=== PATIENT | female | born 1975 | race Caucasian/White ===

== ENCOUNTER 2016-09-05 22:44 | Emergency (ER) | payer OTHER ==
--- NOTE | ~2016-09-05 | EKG ---
PATIENT: TOMMIE CEBALLOS UNIT #: [id number] Ventricular Rate: 74 BPM Atrial Rate: 74 BPM P-R Interval: 158 ms QRS Duration: 80 ms Q-T Interval: 384 ms QTC Calculation(Bezet): 426 ms P [place]: 76 degrees Calculated R [place]: 79 degrees Calculated T [place]: 68 degrees Diagnosis Line: Normal sinus rhythm Diagnosis Line: Normal ECG Diagnosis Line: When compared with ECG of 28-AUG-2013 15:38, Diagnosis Line: QT has shortened Diagnosis Line: Confirmed by JASKARAN ABBOTT MD ([id number]) on 09/09/2016 Diagnosis Line: 8:09:07 AM INTERPRETING MD: MILENA JENKINS
[~2016-09-05 22:44] MED LIST: BACTRIM DS TABL1 TAB PO; DIFLUCAN PO; DOXYCYCLINE PO; FLAGYL PO; KEFLEX PO; ORTHO TRI-7 DAYSX 3 PO; PROZAC PO; SEROQUEL PO; STOMACH MED PO; VICODIN 5/500 T1 TAB PO
[2016-09-05] MEDS ORDERED: PROZAC PO (23:01)
[2016-09-05] MEDS ORDERED: NEURONTIN PO (23:01)
[2016-09-05] MEDS ORDERED: CLONIDINE PO (23:02)
[2016-09-05] MEDS ORDERED: IBUPROFEN PO (23:02)
[2016-09-05] MEDS ORDERED: LAMICTAL (23:03)
[2016-09-05 23:59] LABS: URINE SOURCE CLEAN CATCH
[2016-09-06 00:03] LABS: URINE APPEARANCE CLEAR; URINE BLOOD NEG (NEG); URINE COLOR DK YELLOW; URINE GLUCOSE NEG (NORM); URINE KETONE NEG (NEG); URINE LEUKOCYTE ESTERASE NEG (NEG); URINE NITRATE NEG (NEG); URINE PROTEIN TRACE (NEG); URINE SPECIFIC GRAVITY >=1.030 (1.003-1.035)
[2016-09-06 00:08] LABS: MICRO INDICATED? YES; URINE BILIRUBIN NEG (NEG)
[2016-09-06 00:09] LABS: CULTURE INDICATED? NO; URINE BACTERIA NEG (NEG); URINE MUCUS PRESENT; URINE SQUAMOUS EPITHELIAL CELL OCCAS /[HPF]; URINE WBC 0-2 /[HPF] (0-5)
[2016-09-06 00:12] LABS: AMPHETAMINE POS (NEG); BARBITURATES NEG (NEG); BENZODIAZEPINES NEG (NEG); COCAINE NEG (NEG); MARIJUANA NEG (NEG); OPIATES POS (NEG); TRICYCLIC ANTIDEPRESSANTS POS (NEG); U METHADONE NEG (NEG)
== END 2016-09-06 00:42 | disposition home or self-care (01) ==
LOC: SED 22:44
PROVIDERS: Emergency Medicine
DX: R42 Dizziness and giddiness (principal); F31.9 Bipolar disorder, unspecified; F41.9 Anxiety disorder, unspecified; F17.200 Nicotine dependence, unspecified, uncomplicated; Z79.899 Other long term (current) drug therapy
CPT/HCPCS: 80307; 81003; 84703; 93005; 99283